=== PATIENT | male | born 1935 | race Caucasian/White ===

== ENCOUNTER 2018-07-05 11:41 | Emergency (ER) | payer MEDICARE ==
[2018-07-05] MEDS ORDERED: EPINEPHRINE 0.1 MG/ML 10 ML SYG IVP ONE (12:00)
[2018-07-05] MEDS ORDERED: SODIUM BICARB 8.4% 50ML SYRINGE IVP ONE (12:00)
== END 2018-07-05 13:57 | disposition expired ==
LOC: EDH 11:41
DX: S09.8XXA Other specified injuries of head, initial encounter (principal); I46.8 Cardiac arrest due to other underlying condition; E78.5 Hyperlipidemia, unspecified; M10.9 Gout, unspecified; Z88.8 Allergy status to other drugs, medicaments and biological substances; N42.9 Disorder of prostate, unspecified; Z98.890 Other specified postprocedural states; W18.39XA Other fall on same level, initial encounter; Y93.89 Activity, other specified; Y92.096 Garden or yard of other non-institutional residence as the place of occurrence of the external cause; Y99.8 Other external cause status
CPT/HCPCS: 92950; 99291; J0171; J3490